=== PATIENT | female | born 1945 | race Caucasian/White ===

== ENCOUNTER → 2021-08-11 | Outpatient (CLI) | payer OTHER, MEDICARE ==
--- NOTE | 2021-08-11 18:09 | DEXAMM ---
INDICATION: SCREEN OSTEO. COMPARISON: 09/29/2007, 03/08/2001. TECHNIQUE: Bone density was measured using dual-energy x-ray absorptiometry (DEXA). FINDINGS: AP SPINE L1-L4 BMD 1.831 g/cm2 Young Adult T-Score 5.1 Age Matched Z-Score 6.9. LT FEMUR, TOTAL BMD 0.912 g/cm2 Young Adult T-Score -0.8 Age Matched Z-Score 1.0. LT NECK BMD 0.837 g/cm2 Young Adult T-Score -1.4 Age Matched Z-Score 0.5. RT FEMUR, TOTAL BMD 0.937 g/cm2 Young Adult T-Score -0.6 Age Matched Z-Score 1.2. RT NECK BMD 0.877 g/cm2 Young Adult T-Score -1.2 Age Matched Z-Score 0.8. IMPRESSION: There is normal bone density of the spine. There is low bone density of the left hip. There is low bone density of the right hip. The density of the spine has increased 25.8% since the initial exam on 03/08/2001. The density of the spine increased 17.6% since most recent exam on 09/29/2007. The density of the left hip has decreased 14.3% since initial exam on 03/08/2001. The density of the left hip has decreased 6.8% since most recent exam on 09/29/2007. The density of the right hip has decreased 13.2% since the initial exam on 03/08/2001. The density of the right hip has decreased 7.1% since the most recent exam on 09/29/2007. FOLLOW-UP: Recommendation for the next bone density exam: 2 years. <Electronically signed by Kamlesh Johnson > 08/11/21 [id number]
== END ==
LOC: M WHC 13:31
PROVIDERS: ATTEND Student in an Organized Health Care Education/Training Program
DX: Z13.820 Encounter for screening for osteoporosis (principal)

== ENCOUNTER → 2021-09-23 | Outpatient (CLI) | payer OTHER ==
[2021-09-23 10:33] LABS: HEMATOCRIT 41.6 % (36.0-47.0); HEMOGLOBIN 13.7 g/dl (12.0-15.5); MEAN CORPUSCULAR HEMOGLOBIN 30.9 pg (27.0-33.0); MEAN CORPUSCULAR HGB CONC 32.9 g/dl (32.0-36.5); MEAN CORPUSCULAR VOLUME 93.7 fl (80.0-96.0); PLATELET COUNT, AUTOMATED 274 10^3/uL (150-450); RED BLOOD COUNT 4.44 10^6/uL (4.00-5.40); WHITE BLOOD COUNT 8.5 10^3/uL (4.0-10.0)
== END ==
LOC: M PLALAB 09:00
PROVIDERS: ATTEND Student in an Organized Health Care Education/Training Program
DX: M85.80 Other specified disorders of bone density and structure, unspecified site (principal); G47.9 Sleep disorder, unspecified